=== PATIENT | male | born 1985 | race Caucasian/White ===

== ENCOUNTER 2016-10-26 15:36 | Emergency (ER) | payer MEDICAID ==
[~2016-10-26] VITALS: Ht 175.3 cm; Wt 67.5 kg
[2016-10-26 15:53] VITALS: Ht 175.3 cm; Wt 67.5 kg
[2016-10-26] MEDS ORDERED: PEN500 PO (16:18)
--- NOTE | 2016-10-26 17:15 | ERD ---
ER Documentation Chief Complaint Date/Time DATE: 10/26/16 TIME: 17:[address] WITH FEVERS AT HOME, SINUS INFECTION X 3 WEEKS NO ANTIBIOTIC USE HPI This is a 31-year-old male presents to the ER with sore throat, fever and white spots in his throat for the last 2 days. Patient states that 3 weeks ago he had a sinus infection however did not take any antibiotics. Patient denies any difficulty in swallowing, however it is painful whenever he swallows. He denies any chest pain, shortness of breath, wheezing. Patient has a past medical history of depression anxiety which he states is secondary to his drug use. Patient occasionally does cocaine. ROS 12 point review of systems was done, all negative except per HPI. Medications Home Meds Active Scripts Penicillin V Potassium* (Penicillin V K*) 500 Mg Tab, 500 MG PO TID for 10 Days , TAB Prov:OMAR LENZ Chivo 10/26/16 Allergies Allergies: Coded Allergies: No Known Allergy (Unverified , 10/26/16) PMhx/Soc Medical and Surgical Hx: pt denies Surgical Hx Hx Psychiatric Problems: Yes (anxiety) Hx Alcohol Use: No Hx Substance Use: No Hx Tobacco Use: No Smoking Status: Never smoker Physical Exam Vitals Vital Signs Date Time Temp Pulse Resp B/P Pulse Ox O2 Delivery O2 Flow Rate FiO2 10/26/16 15:53 98.2 86 20 133/89 98 Physical Exam GENERAL: The patient is well-developed, well-nourished, in no acute distress. NECK: Cervical spine is non tender with no step off. Supple, no nuchal rigidity HEENT: Atraumatic. Pupils equal, round and reactive to light. Extraocular muscles are grossly intact. Conjunctivae pink, no discharge. Bilateral tympanic membranes are clear with no evidence of erythema, effusion or dulling of the light reflex. Bilateral tonsillar exudates with tonsillar erythema, no uvular deviation no kissing tonsils. RESPIRATORY: Clear to auscultation bilaterally. There are no rales, wheezes or rhonchi. HEART: Regular rate and rhythm. No murmurs, clicks, rubs or gallops. EXTREMITIES: No clubbing or cyanosis. Full range of motion. Grossly neurovascularly intact. NEUROLOGIC: Alert and oriented. Cranial nerves II through XII are intact. SKIN: There is no rash. The skin is warm and dry. Procedures/MDM This is a 31-year-old male presents to the ER with sore throat and fever for the last 2 days. Patient does appear to have strep throat. Suspicion for retropharyngeal abscess or peritonsillar abscess is low patient does not have any uvular deviation or kissing tonsils. He will be sent home with penicillin. He needs to follow-up with his primary care doctor within 1-2 days or return to ER sooner if symptoms worsen. My medical decision making shared with the patient he understands and agrees with plan. Departure Diagnosis: Primary Impression: Strep throat Condition: Stable Patient Instructions: Strep Throat Additional Instructions: Call your primary care doctor TOMORROW for an appointment during the next 1-2 days.See the doctor sooner or return here if your condition worsens before your appointment time. OMAR LENZ Oct 26, 2016 17:15
== END 2016-10-26 17:02 | disposition home or self-care (01) ==
LOC: FTE 15:36
DX: J02.0 Streptococcal pharyngitis (principal)
CPT/HCPCS: 99283